=== PATIENT | male | born 1970 | race Caucasian/White ===

== ENCOUNTER → 2023-05-16 09:23 | Outpatient (REF) | payer BC, SELFPAY | LOC: RCS 09:23 | PROVIDERS: ATTENDING PHYSICIAN Family Medicine | DX: R00.2 Palpitations (principal) | CPT/HCPCS: 93225; 93226 ==

== ENCOUNTER → 2024-05-29 14:26 | Outpatient (REF) | payer BC, SELFPAY | LOC: HWRAD 14:26 | PROVIDERS: ATTENDING PHYSICIAN Family Medicine | DX: R10.30 Lower abdominal pain, unspecified (principal) | CPT/HCPCS: 76882 ==

== ENCOUNTER 2024-08-02 06:31 | Day surgery (SDC) | payer BC, SELFPAY ==
[2024-08-02] VITALS (7 sets, daily range): BP systolic 111–132; BP diastolic 69–82; BMI 30.3
--- NOTE | 2024-08-02 07:02 | W.SUR.PREOP ---
Pre-Operative Surgical Note
-
I have examined this patient prior to the performance of the scheduled procedure.
The patient's condition is unchanged from the time of the current History and
Physical and the patient is able to undergo the scheduled procedure.
[2024-08-02] MEDS: TYLENOL 1000 MG PO (08:26)
[2024-08-02] MEDS: NORMOSOL-R/PLASMALYTE-A 1000 IV (08:46)
--- NOTE | 2024-08-02 10:39 | SUR.OPER ---
Patient checked on several times and offered warm blankets and bathroom. Will monitor patient.
--- NOTE | 2024-08-02 13:50 | W.IMMPOSTOP ---
Surgical Immed Post Op Note
-
Primary Surgeon: Shin Live MD
Assisting Surgeon: None
Pre-op Diagnosis: Right inguinal hernia
Post-op Diagnosis: Bilateral inguinal hernias
Procedure Performed: Robotic bilateral inguinal hernia repairs with mesh
Anesthesia Type: General
Specimen / Cultures: None
Estimated Blood Loss: 3 cc
Complications: None
Operative Findings: Veress needle entry. 5 mm left upper quadrant Optiview trocar entry. Bilateral indirect inguinal defects identified. Bilateral cord lipomas reduced and resected. After achieving the critical view of the MPO bilaterally, the
spaces were reinforced with large 3D max Bard soft mid weight uncoated polypropylene mesh x 2.
POST OP PLAN:
Will discharge home after voiding. Discussed operative findings with the patient's family in the waiting area.
--- NOTE | 2024-08-02 13:53 | OR.RPT ---
Operative Report
Operative Report
Patient Name: Carlos Brown
: 1970
Date of Operation: 08/02/2024
Preoperative Diagnosis: Reducible Inguinal hernia, right
Postoperative Diagnosis: Bilateral inguinal hernias
Procedure(s):
Robotic bilateral inguinal Hernia Repair with mesh, (YESENIA approach)
Surgeon(s):
Dr. Live
District Court Justice(s):
CAMILLA Ansari
Anesthesia: General
Estimated Blood Loss: 3 cc
Urine Output: None
Drains/Lines/Implants: Large 3D Max Bard mid weight uncoated polypropylene mesh x 2
Specimens: None
Indication for surgery: The patient has a history of groin pain and noted on exam to have a right, possible left inguinal Hernia(s). Following review of therapeutic options they have elected to undergo a minimally invasive repair.
Operative Findings: Veress needle entry. 5 mm left upper quadrant Optiview trocar entry. Bilateral indirect inguinal defects identified. Bilateral cord lipomas reduced and resected. After achieving the critical view of the MPO bilaterally, the
spaces were reinforced with large 3D max Bard soft mid weight uncoated polypropylene mesh x 2.
Details of the operation:
The patient was brought to the Operating Room and placed in the supine position with the arms tucked. IV antibiotics were infused and Venodyne stockings placed. Following uneventful induction of general endotracheal anesthesia, an orogastric tube
was placed. The abdomen was prepped and draped in the usual sterile fashion. The abdomen was entered using a Veress technique which required 2 passes, pneumoperitoneum to 15 mmHg was obtained without difficulty however passing the trocar blindly
was difficult due to his body habitus so we elected to use a 5 mm left upper quadrant Optiview entry. We then confirmed that no inadvertent injury was made while passing the trocar or Veress needle. We then placed 3 8 mm ports in the upper abdomen
in the usual fashion. We then docked the robot with a Prograsper in the left hand port and monopolar scissors in the right. Bilateral inguinal hernias were identified. We then began by creating a flap on the right side at the level of the ASIS
laterally working our way medially to the medial umbilical fold. Staying onto the peritoneum we were able to circumferentially dissect around the hernia sac and and peel it off of the underlying spermatic cord and testicular vessels, taking care to
preserve them. Medially we identified the midline pubis as well as Dima's ligament and ensured to dissect 2 cm below the pubic rim over the bladder. After exposure of the entire myopectineal orifice we identified and reduced: A medium sized
indirect inguinal hernia, no direct inguinal hernia, no femoral hernia, a medium cord lipoma, which was removed. We then performed the identical dissection on the left side and identified a small indirect inguinal hernia, no direct inguinal hernia
and no femoral hernia. Again a medium size cord lipoma was identified, reduced and resected.
We then fixated a large 3D max mesh with a 2-0 Vicryl stitch at coopers medially and superior laterally x 2. The flap was then closed with a running 2-0 barbed monocryl suture ensuring that the tail was cut flush with the medial fat pad so that no
barbs were exposed. During the closure of the flap an Angiocath was inserted and 20 cc of quarter percent Marcaine was instilled. The area in the flap cavity was then evacuated of air confirming that the mesh was flush and there were no folds. A
small rent in the peritoneum was noted and closed with 2-0 Vicryl. All needles and instruments were then removed and the robot was undocked. The abdomen was then desufflated, and pneumoperitoneum evacuated. All skin sites were then closed with 4-0
Monocryl followed by Dermabond. Counts were correct and overall, the patient tolerated the procedure well and was taken to the Recovery Room postoperatively in stable condition.
I was the attending physician and performed the procedure with assistance of the PA above. The assistance of CAMILLA Ansari was required due to the complexity of the procedure. During the procedure Sravanthi assisted with port placement, instrument
and needle exchanges, and closure of the wound. I was present for all portions of the case, excluding skin closure.
Shin Live MD
[2024-08-02] MEDS: DILAUDID 0.25 MG IV (14:10)
== END 2024-08-02 15:15 | disposition home or self-care (01) ==
LOC: SDS 06:31
PROVIDERS: ATTENDING PHYSICIAN Surgery
DX: K40.20 Bilateral inguinal hernia, without obstruction or gangrene, not specified as recurrent (principal); D17.6 Benign lipomatous neoplasm of spermatic cord
CPT/HCPCS: 49650; C1781